=== PATIENT | male | born 1965 | race Caucasian/White ===

== ENCOUNTER 2021-07-18 14:20 | Inpatient (IN) | payer OTHER ==
[~2021-07-18] VITALS: Ht 182.9 cm; Wt 87.1 kg
[~2021-07-18 14:20] MED LIST: AMLO-258 PO; CARV6.2579 PO; LOSA50TA64 PO
[2021-07-18 15:28] LABS: APPEARANCE,URINE Clear (CLEAR); BILIRUBIN,URINE Negative (NEGATIVE); COLOR,URINE Yellow (YELLOW); GLUCOSE, URINE (UA) >=1000 mg/dL (NEGATIVE); KETONES,URINE >=80 mg/dL (NEGATIVE); LEUKOCYTE ESTERASE ,URINE Negative (NEGATIVE); NITRATE,URINE Negative (NEGATIVE); OCCULT BLOOD,URINE Negative (NEGATIVE); PROTEIN,URINE POS 1+ mg/dL (NEGATIVE); UROBILINOGEN,URINE 0.2 mg/dL (0.2-1.0)
[2021-07-18] MEDS ORDERED: ONDANSETRON 4MG INJ IVP ONE (15:30)
[2021-07-18] MEDS ORDERED: 0.9%NACL 1000ML 1,000 ML IV ONE (15:30)
[2021-07-18 15:37] LABS: AMPHET/METH SCREEN,URINE NEGATIVE (NEGATIVE); BARBITURATE SCREEN, URINE NEGATIVE (NEGATIVE); BENZODIAZEPINES SCREEN,URINE NEGATIVE (NEGATIVE); CANNABINOID SCREEN,URINE POSITIVE (NEGATIVE); COCAINE SCREEN,URINE NEGATIVE (NEGATIVE); OPIATE SCREEN,URINE NEGATIVE (NEGATIVE); PHENCYCLIDINE SCREEN,URINE NEGATIVE (NEGATIVE)
[2021-07-18 15:42] LABS: BACTERIA,URINE Rare /HPF (None Seen); MUCUS,URINE Few LPF (None Seen); RBC,URINE 0-1 /HPF (0-1); SQUAMOUS EPITHELIAL CELL,UR 0-2 /HPF (0-2); WBC,URINE 0-1 /HPF (0-1)
[2021-07-18 16:07] LABS: BASOPHILS % (AUTO) 0.4 % (0.0-5.0); EOSINOPHILS % (AUTO) 0.2 % (0.0-8.0); HEMATOCRIT 47.8 % (42-54); LYMPHOCYTES % (AUTO) 11.6 % (21.0-51.0); MEAN CORPUSCULAR HEMOGLOBIN 34.6 pg (27.0-33.0); MEAN CORPUSCULAR HGB CONC 35.8 g/dL (32.0-36.0); MEAN CORPUSCULAR VOLUME 96.8 fL (79-99); MONOCYTES % (AUTO) 5.1 % (3.0-13.0); PLATELET COUNT (AUTO) 371 K/uL (130-400); RED BLOOD CELL COUNT(AUTO) 4.94 MIL/uL (4.50-6.20); RED CELL DISTRIBUTION WIDTH 11.9 % (11.0-15.5); WHITE BLOOD COUNT (AUTO) 13.7 K/uL (4.8-10.8)
[2021-07-18 16:29] LABS: CREATININE 1.4 mg/dL (0.5-1.5); POTASSIUM 4.6 mmol/L (3.5-5.1)
[2021-07-18 16:33] LABS: ALBUMIN 4.8 g/dL (3.5-5.0); BILIRUBIN,TOTAL 0.7 mg/dL (0.2-1.0); TOTAL PROTEIN, SERUM 8.6 g/dL (6.0-8.3)
[2021-07-18] MEDS ORDERED: MORPHINE 5 MG/ML VIAL (5MG OR GREATER DOSE) IV ONE (17:00)
[2021-07-18] MEDS: 0.9%NACL 1000ML 1,000 ML IV ONE ×2 (17:00→19:00)
[2021-07-18] MEDS ORDERED: DEXTROSE 5 %-0.45 % NACL 1,000 ML IV SCH (17:00)
[2021-07-18] MEDS ORDERED: INSULIN HUMULIN R 100 UNIT/ML 3ML SQ STA (18:25)
[2021-07-18 18:52] LABS: HEMOGLOBIN A1C 10.6 % (4.0-6.0)
[2021-07-18] MEDS: LACTATED RINGERS 1000ML 1,000 ML IV SCH (18:52)
[2021-07-18] MEDS ORDERED: ACETAMINOPHEN 650 MG SUPPOSITORY RC PRN ×2 (19:00)
[2021-07-18] MEDS ORDERED: MORPHINE 2 MG SYG IVP PRN (19:00)
[2021-07-18] MEDS ORDERED: NITROGLYCERIN 0.4 MG SL TAB SL PRN (19:00)
[2021-07-18] MEDS ORDERED: DEXTROSE 50%-WATER 50 ML DISP.SYRIN IV PRN (19:00)
[2021-07-18] MEDS ORDERED: GLUCAGON 1MG KIT 1 MG ML IM PRN (19:00)
[2021-07-18] MEDS ORDERED: ONDANSETRON 4MG INJ IV PRN (19:00)
[2021-07-18] MEDS ORDERED: INSULIN HUMULIN R 100 UNIT/ML 3ML ONE (19:56)
[2021-07-18] MEDS: 0.9%NACL 1000ML 1,000 ML IV SCH (20:20)
[2021-07-18] MEDS ORDERED: HYDROMORPHONE 0.5 MG SYG (0.5MG/0.5ML) IVP PRN (20:30)
[2021-07-18] MEDS: FAMOTIDINE 20MG VIAL IV SCH (20:54)
[2021-07-18 21:19] LABS: INR 1.05 (0.85-1.15); PROTHROMBIN TIME 11.4 SEC (9.6-11.6)
[2021-07-18 21:20] LABS: PARTIAL THROMBOPLASTIN TIME 25.1 SEC (26.3-35.5)
[2021-07-18] MEDS ORDERED: LABETALOL 20MG SYG IV ONE ×2 (21:30→23:23)
[2021-07-18] MEDS: INSULIN HUMULIN R 100 UNIT/ML 3ML SQ SCH (23:48)
[2021-07-18] MEDS: HYDROMORPHONE 0.5 MG SYG (0.5MG/0.5ML) IVP PRN (23:53)
[2021-07-19] VITALS (9 sets, daily range): BP systolic 130–191; BP diastolic 78–96
[2021-07-19] MEDS ORDERED: LABETALOL 20MG SYG IV ONE ×2 (01:00→02:59)
[2021-07-19] MEDS: ZOSYN 3.375GM +NS 50ML IV SCH ×3 (02:17→17:13)
[2021-07-19] MEDS: HYDROMORPHONE 0.5 MG SYG (0.5MG/0.5ML) IVP PRN ×6 (02:54→21:07)
[2021-07-19] MEDS ORDERED: HYDROMORPHONE 0.5 MG SYG (0.5MG/0.5ML) IVP ONE (03:30)
[2021-07-19 04:18] LABS: BASOPHILS % (AUTO) 0.2 % (0.0-5.0); EOSINOPHILS % (AUTO) 0.9 % (0.0-8.0); HEMATOCRIT 41.6 % (42-54); LYMPHOCYTES % (AUTO) 15.6 % (21.0-51.0); MEAN CORPUSCULAR HEMOGLOBIN 34.2 pg (27.0-33.0); MEAN CORPUSCULAR HGB CONC 34.9 g/dL (32.0-36.0); MEAN CORPUSCULAR VOLUME 98.1 fL (79-99); MONOCYTES % (AUTO) 6.5 % (3.0-13.0); NEUTROPHILS % (AUTO) 75.8 % (40.0-77.0); PLATELET COUNT (AUTO) 297 K/uL (130-400); RED BLOOD CELL COUNT(AUTO) 4.24 MIL/uL (4.50-6.20); RED CELL DISTRIBUTION WIDTH 11.9 % (11.0-15.5); WHITE BLOOD COUNT (AUTO) 10.9 K/uL (4.8-10.8)
[2021-07-19 04:49] LABS: ALBUMIN 3.6 g/dL (3.5-5.0); BILIRUBIN,TOTAL 0.6 mg/dL (0.2-1.0); CREATININE 1.1 mg/dL (0.5-1.5); MAGNESIUM 2.2 mg/dL (1.80-2.40); POTASSIUM 4.1 mmol/L (3.5-5.1)
[2021-07-19] MEDS: INSULIN HUMULIN R 100 UNIT/ML 3ML SQ SCH ×3 (06:24→18:00)
[2021-07-19] MEDS: 0.9%NACL 1000ML 1,000 ML IV SCH ×2 (10:00→17:13)
[2021-07-19] MEDS: FAMOTIDINE 20MG VIAL IV SCH ×2 (10:01→21:06)
[2021-07-19] MEDS: CARVEDILOL 6.25 MG TABLET PO SCH ×2 (10:05→21:06)
[2021-07-19] MEDS: LOSARTAN 50 MG TABLET PO SCH (10:06)
[2021-07-19] MEDS: AMLODIPINE 5 MG TAB PO SCH (10:06)
[2021-07-19] MEDS: ENOXAPARIN SODIUM 30 MG/0.3 ML SQ SCH (10:07)
[2021-07-19] MEDS: LACTATED RINGERS 1000ML 1,000 ML IV SCH (23:00)
[2021-07-20] MEDS ORDERED: DiphenhydrAMINE HCL 50 MG/ML VIAL IV ONE (00:30)
[2021-07-20] MEDS: ZOSYN 3.375GM +NS 50ML IV SCH ×3 (01:20→17:10)
[2021-07-20] MEDS: HYDROMORPHONE 0.5 MG SYG (0.5MG/0.5ML) IVP PRN ×7 (01:20→23:17)
[2021-07-20] MEDS: LACTATED RINGERS 1000ML 1,000 ML IV SCH ×3 (02:30→18:30)
[2021-07-20] MEDS ORDERED: DiphenhydrAMINE HCL 50 MG/ML VIAL ONE (02:52)
[2021-07-20 03:20] VITALS: BP 138/84
[2021-07-20] MEDS: 0.9%NACL 1000ML 1,000 ML IV SCH ×3 (03:30→23:30)
[2021-07-20 04:36] LABS: HEMATOCRIT 39.2 % (42-54); MEAN CORPUSCULAR HEMOGLOBIN 34.7 pg (27.0-33.0); MEAN CORPUSCULAR HGB CONC 34.7 g/dL (32.0-36.0); RED BLOOD CELL COUNT(AUTO) 3.92 MIL/uL (4.50-6.20); RED CELL DISTRIBUTION WIDTH 11.9 % (11.0-15.5); WHITE BLOOD COUNT (AUTO) 8.4 K/uL (4.8-10.8)
[2021-07-20 04:58] LABS: ALBUMIN 3.2 g/dL (3.5-5.0); BILIRUBIN,TOTAL 0.5 mg/dL (0.2-1.0); POTASSIUM 3.7 mmol/L (3.5-5.1); TOTAL PROTEIN, SERUM 6.4 g/dL (6.0-8.3)
[2021-07-20] MEDS: INSULIN HUMULIN R 100 UNIT/ML 3ML SQ SCH ×4 (06:00→17:18)
[2021-07-20 08:00] VITALS: BP 156/93
[2021-07-20] MEDS: FAMOTIDINE 20MG VIAL IV SCH ×2 (10:02→20:10)
[2021-07-20] MEDS: AMLODIPINE 5 MG TAB PO SCH (10:02)
[2021-07-20] MEDS: LOSARTAN 50 MG TABLET PO SCH (10:02)
[2021-07-20] MEDS: CARVEDILOL 6.25 MG TABLET PO SCH ×2 (10:03→20:11)
[2021-07-20] MEDS: ENOXAPARIN SODIUM 30 MG/0.3 ML SQ SCH (10:05)
[2021-07-20 12:01] VITALS: BP 149/93
[2021-07-20] MEDS ORDERED: 0.9%NACL 10ML VIAL ONE (13:37)
[2021-07-20 16:00] VITALS: BP 137/95
[2021-07-20 20:29] VITALS: BP 163/88
[2021-07-20] MEDS ORDERED: POLYETHYLENE GLYCOL 3350 17 GM POWD.PACK PO SCH (21:00)
[2021-07-20 23:21] VITALS: BP 153/99
[2021-07-20 23:38] LABS: APPEARANCE,URINE Clear (CLEAR); BILIRUBIN,URINE Negative (NEGATIVE); COLOR,URINE Yellow (YELLOW); GLUCOSE, URINE (UA) 500 mg/dL (NEGATIVE); KETONES,URINE 15 mg/dL (NEGATIVE); LEUKOCYTE ESTERASE ,URINE Negative (NEGATIVE); NITRATE,URINE Negative (NEGATIVE); OCCULT BLOOD,URINE Negative (NEGATIVE); PH,URINE 5.5 (5.0-8.0); PROTEIN,URINE Trace mg/dL (NEGATIVE); UROBILINOGEN,URINE 0.2 mg/dL (0.2-1.0)
[2021-07-20 23:43] LABS: BACTERIA,URINE None Seen /HPF (None Seen); RBC,URINE None Seen /HPF (0-1); SQUAMOUS EPITHELIAL CELL,UR Rare /HPF (0-2); WBC,URINE None Seen /HPF (0-1); YEAST,URINE BUDDING None Seen /HPF (None Seen)
[2021-07-21] MEDS: ZOSYN 3.375GM +NS 50ML IV SCH ×2 (00:54→08:17)
[2021-07-21] MEDS: LACTATED RINGERS 1000ML 1,000 ML IV SCH ×3 (02:06→16:53)
[2021-07-21] MEDS: HYDROMORPHONE 0.5 MG SYG (0.5MG/0.5ML) IVP PRN ×6 (02:30→20:48)
[2021-07-21 04:17] VITALS: BP 153/89
[2021-07-21 04:45] LABS: HEMATOCRIT 36.2 % (42-54); MEAN CORPUSCULAR HEMOGLOBIN 34.6 pg (27.0-33.0); MEAN CORPUSCULAR HGB CONC 35.1 g/dL (32.0-36.0); MEAN CORPUSCULAR VOLUME 98.6 fL (79-99); RED BLOOD CELL COUNT(AUTO) 3.67 MIL/uL (4.50-6.20); RED CELL DISTRIBUTION WIDTH 11.9 % (11.0-15.5); WHITE BLOOD COUNT (AUTO) 6.7 K/uL (4.8-10.8)
[2021-07-21 05:01] LABS: ALBUMIN 3.1 g/dL (3.5-5.0); BILIRUBIN,TOTAL 0.4 mg/dL (0.2-1.0); CREATININE 0.9 mg/dL (0.5-1.5); POTASSIUM 3.6 mmol/L (3.5-5.1); TOTAL PROTEIN, SERUM 6.2 g/dL (6.0-8.3)
[2021-07-21] MEDS: INSULIN HUMULIN R 100 UNIT/ML 3ML SQ SCH ×4 (06:03→20:59)
[2021-07-21 08:00] VITALS: BP 159/99
[2021-07-21] MEDS: FAMOTIDINE 20MG VIAL IV SCH ×2 (08:16→20:48)
[2021-07-21] MEDS: ENOXAPARIN SODIUM 30 MG/0.3 ML SQ SCH (08:16)
[2021-07-21] MEDS: CARVEDILOL 6.25 MG TABLET PO SCH ×2 (08:17→20:49)
[2021-07-21] MEDS: LOSARTAN 50 MG TABLET PO SCH (08:17)
[2021-07-21] MEDS: FENOFIBRATE NANOCRYSTALLIZED 145 MG TAB PO SCH (08:17)
[2021-07-21] MEDS: AMLODIPINE 5 MG TAB PO SCH (08:17)
[2021-07-21] MEDS: ATORVASTATIN 20 MG TABLET PO SCH (08:18)
[2021-07-21 11:54] VITALS: BP 159/89
[2021-07-21 16:00] VITALS: BP 151/83
[2021-07-21 19:51] VITALS: BP 144/96
[2021-07-21 23:12] VITALS: BP 150/84
[2021-07-22] MEDS: LACTATED RINGERS 1000ML 1,000 ML IV SCH ×3 (00:22→17:43)
[2021-07-22] MEDS: HYDROMORPHONE 0.5 MG SYG (0.5MG/0.5ML) IVP PRN ×6 (00:23→21:02)
[2021-07-22 03:46] VITALS: BP 155/88
[2021-07-22 06:00] LABS: BASOPHILS % (AUTO) 0.2 % (0.0-5.0); EOSINOPHILS % (AUTO) 2.3 % (0.0-8.0); HEMATOCRIT 35.7 % (42-54); LYMPHOCYTES % (AUTO) 24.2 % (21.0-51.0); MEAN CORPUSCULAR HEMOGLOBIN 34.2 pg (27.0-33.0); MEAN CORPUSCULAR HGB CONC 35.3 g/dL (32.0-36.0); MONOCYTES % (AUTO) 7.7 % (3.0-13.0); NEUTROPHILS % (AUTO) 65.2 % (40.0-77.0); PLATELET COUNT (AUTO) 287 K/uL (130-400); RED BLOOD CELL COUNT(AUTO) 3.68 MIL/uL (4.50-6.20); RED CELL DISTRIBUTION WIDTH 11.7 % (11.0-15.5); WHITE BLOOD COUNT (AUTO) 9.2 K/uL (4.8-10.8)
[2021-07-22 06:12] LABS: ALBUMIN 3.1 g/dL (3.5-5.0); BILIRUBIN,TOTAL 0.5 mg/dL (0.2-1.0); POTASSIUM 3.4 mmol/L (3.5-5.1); TOTAL PROTEIN, SERUM 6.2 g/dL (6.0-8.3)
[2021-07-22] MEDS: INSULIN HUMULIN R 100 UNIT/ML 3ML SQ SCH ×4 (06:34→20:59)
[2021-07-22 08:00] VITALS: BP 142/79
[2021-07-22] MEDS: ENOXAPARIN SODIUM 30 MG/0.3 ML SQ SCH (09:33)
[2021-07-22] MEDS: AMLODIPINE 5 MG TAB PO SCH (09:33)
[2021-07-22] MEDS: LOSARTAN 50 MG TABLET PO SCH (09:33)
[2021-07-22] MEDS: FAMOTIDINE 20MG VIAL IV SCH ×2 (09:33→20:50)
[2021-07-22] MEDS: ATORVASTATIN 20 MG TABLET PO SCH (09:33)
[2021-07-22] MEDS: CARVEDILOL 6.25 MG TABLET PO SCH ×2 (09:33→20:51)
[2021-07-22] MEDS: FENOFIBRATE NANOCRYSTALLIZED 145 MG TAB PO SCH (09:33)
[2021-07-22 12:00] VITALS: BP 158/78
[2021-07-22 16:00] VITALS: BP 163/92
[2021-07-22 20:04] VITALS: BP 151/80
[2021-07-22 23:08] VITALS: BP 135/74
[2021-07-23] MEDS: HYDROMORPHONE 0.5 MG SYG (0.5MG/0.5ML) IVP PRN ×2 (01:56→05:32)
[2021-07-23 04:08] VITALS: BP 97/56
[2021-07-23 06:13] LABS: BASOPHILS % (AUTO) 0.3 % (0.0-5.0); EOSINOPHILS % (AUTO) 2.5 % (0.0-8.0); HEMATOCRIT 37.4 % (42-54); LYMPHOCYTES % (AUTO) 28.9 % (21.0-51.0); MEAN CORPUSCULAR HEMOGLOBIN 34.1 pg (27.0-33.0); MEAN CORPUSCULAR HGB CONC 34.8 g/dL (32.0-36.0); MEAN CORPUSCULAR VOLUME 98.2 fL (79-99); MONOCYTES % (AUTO) 10.6 % (3.0-13.0); NEUTROPHILS % (AUTO) 57.1 % (40.0-77.0); PLATELET COUNT (AUTO) 304 K/uL (130-400); RED BLOOD CELL COUNT(AUTO) 3.81 MIL/uL (4.50-6.20); RED CELL DISTRIBUTION WIDTH 11.7 % (11.0-15.5); WHITE BLOOD COUNT (AUTO) 7.3 K/uL (4.8-10.8)
[2021-07-23 06:26] LABS: ALBUMIN 3.3 g/dL (3.5-5.0); BILIRUBIN,TOTAL 0.4 mg/dL (0.2-1.0); POTASSIUM 3.3 mmol/L (3.5-5.1); TOTAL PROTEIN, SERUM 6.6 g/dL (6.0-8.3)
[2021-07-23] MEDS: INSULIN HUMULIN R 100 UNIT/ML 3ML SQ SCH (07:30)
[2021-07-23 08:00] VITALS: BP 152/85
[2021-07-23] MEDS ORDERED: POTASSIUM CHLORIDE 20MEQ/100ML 100 ML IV PRN (08:00)
[2021-07-23] MEDS ORDERED: KCL 20 MEQ ERTAB PO PRN (08:00)
[2021-07-23] MEDS ORDERED: POTASSIUM CHLORIDE 10% ELIXIR 20 MEQ/15 ML UDCUP PO PRN (08:00)
== END 2021-07-23 13:40 | disposition home or self-care (01) | DRG 439 ==
LOC: EDH 14:20 → EDHIP 18:28 → EDBD 18:28 → 3BH 23:05
PROVIDERS: ADMIT Internal Medicine; ATTEND Internal Medicine
DX: K85.80 Other acute pancreatitis without necrosis or infection (principal); R65.10 Systemic inflammatory response syndrome (SIRS) of non-infectious origin without acute organ dysfunction; K86.2 Cyst of pancreas; E11.65 Type 2 diabetes mellitus with hyperglycemia; K57.90 Diverticulosis of intestine, part unspecified, without perforation or abscess without bleeding; Z20.822 Contact with and (suspected) exposure to COVID-19; K21.9 Gastro-esophageal reflux disease without esophagitis; F17.210 Nicotine dependence, cigarettes, uncomplicated; I10 Essential (primary) hypertension; F12.90 Cannabis use, unspecified, uncomplicated; K44.9 Diaphragmatic hernia without obstruction or gangrene; R16.0 Hepatomegaly, not elsewhere classified; Z71.6 Tobacco abuse counseling
CPT/HCPCS: 36415; 71045; 74150; 74176; 80053; 80061; 80305; 81001; 82150; 82948; 83036; 83690; 83735; 85025; 85027; 85610; 85730; 87040; 87635; 93005; 99291; G0378; J1170; J1200; J1650; J1815; J2270; J2405; J2543; J3490; J7030; J7120

== ENCOUNTER → 2024-09-24 | Outpatient (CLI) | payer OTHER ==
[2024-09-24 16:22] LABS: CREATININE 1.1 mg/dL (0.5-1.3); POTASSIUM 4.2 mmol/L (3.5-5.1)
== END | disposition home or self-care (01) ==
LOC: EDBD 13:50 → LAB 13:50
PROVIDERS: ATTEND Student in an Organized Health Care Education/Training Program
DX: I10 Essential (primary) hypertension (principal)
CPT/HCPCS: 36415; 80048